=== PATIENT | female | born 1970 | race Caucasian/White ===

== ENCOUNTER 2020-03-11 12:14 | Emergency (ER) | payer BC ==
[2020-03-11 13:06] LABS: Bilirubin,Urine NEG (Negative); Blood,Urine NEG (Negative); Color,Urine Yellow (Yellow); Mucus,Urine FEW /HPF; Protein,Urine <15 mg/dL mg/dL (Negative); Urobilinogen,Urine < 2.0 mg/dL (<2.0)
[2020-03-11 13:13] LABS: Amphetamine Screen,Urine Negative; Benzodiazepines Screen,Urine Negative; Cannabinoid Screen,Urine Negative; Cocaine Screen,Urine Negative; Methadone Screen,Urine Negative; Opiate Screen,Urine Negative
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
[2020-03-11 13:45] LABS: Basophils % (Auto) 0.5 % (0.0-1.8); Eosinophils # (Auto) 0.2 K/mm3 (0.0-0.4); Eosinophils % (Auto) 2.9 % (0.0-4.3); Hematocrit 37.4 % (30.3-42.9); Hemoglobin 12.8 gm/dl (10.1-14.3); Lymphocytes % (Auto) 37.2 % (13.4-35.0); Mean Corpuscular HGB Conc 34 % (30-34); Mean Corpuscular Volume 88 fl (79-97); Monocytes # (Auto) 0.4 K/mm3 (0.0-0.8); Monocytes % (Auto) 8.2 % (0.0-7.3); Platelet Count 242 K/mm3 (140-440); Red Blood Count 4.23 M/mm3 (3.65-5.03); Red Cell Distribution Width 12.9 % (13.2-15.2)
[2020-03-11 14:07] LABS: Blood Urea Nitrogen 15 mg/dL (7-17); Calcium 9.3 mg/dL (8.4-10.2); Hemolysis Index 27
[2020-03-11 14:13] LABS: BUN/Creatinine Ratio 25
[2020-03-11] MEDS ORDERED: ZIPRASIDONE MESYLATE 20 MG VIAL IM ONE ×2 (15:23→15:39)
[2020-03-12] MEDS: ZIPRASIDONE MESYLATE 20 MG VIAL IM ONE ×2 (06:51→07:34)
[2020-03-12 08:09] VITALS: BP 143/86
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
[2020-03-12] MEDS ORDERED: VALPROIC ACID 250 MG CAP PO SCH (11:00)
[2020-03-12] MEDS ORDERED: QUEtiapine 100 MG TAB PO SCH (11:00)
[2020-03-12] MEDS ORDERED: SERTRALINE 100 MG TAB PO SCH (11:00)
== END 2020-03-12 18:03 ==
LOC: EEVIPCON 12:14 → ED 12:14
DX: F25.0 Schizoaffective disorder, bipolar type (principal); I10 Essential (primary) hypertension; Z79.899 Other long term (current) drug therapy; Z98.890 Other specified postprocedural states
CPT/HCPCS: 36415; 80048; 80307; 81001; 85025; 96372; 99285; J3486; 80320; G0480